=== PATIENT | female | born 1985 | race Caucasian/White ===

== ENCOUNTER 2018-09-19 20:19 | Inpatient (IN) | payer OTHER ==
[~2018-09-19] VITALS: Ht 149.9 cm; Wt 88.1 kg
[~2018-09-19 20:19] MED LIST: PREN1TAB49 PO
[2018-09-19 21:02] VITALS: BP 111/56; PULSE 76; RESP 18
[2018-09-19] MEDS ORDERED: CARBOPROST 250 MCG INJ IM PRN (22:00)
[2018-09-19] MEDS ORDERED: MISOPROSTOL 200 MCG TAB PR PRN (22:00)
[2018-09-19] MEDS ORDERED: OXYTOCIN 30 UNITS/LR 500 ML IV PRN (22:00)
[2018-09-19] MEDS ORDERED: METHYLERGONOVINE 0.2 MG INJ IM PRN (22:00)
[2018-09-19] MEDS ORDERED: OXYTOCIN 30 UNITS/LR 500 ML IV SCH (22:00)
[2018-09-19] MEDS ORDERED: CEFAZOLIN 2 GM/50 ML (PMX) 50 ML IVPB SCH (22:00)
--- NOTE | 2018-09-19 22:01 | TRIAGE ---
OB Triage Datetime Report Generated by CPN: 09/19/2018 22:01 Datetime: 09/19/2018 21:47 Stage of : OB Triage Vaginal Exam Dilatation (cms): 4.0 Effacement (%): 70 Station: -3 Exam By: SANDRA SETH Datetime: 09/19/2018 21:26 Time of Arrival: 09/19/2018 20:10 EGA: 37.0 Arrived By: Wheelchair Arrived From: Home Chief Complaint: hx c/s x1 c/o ucs and DFM today Movement: Decreased Contractions: Regular Time Contractions Began: 09/19/2018 18:00 Contractions: Q15 Rupture of Membranes: Denies Vaginal Bleeding: None Vaginal Discharge: Denies Recent Sexual Intercouse: Denies Abdominal Trauma: Not Applicable Patient Complaints: Contractions Time Provider Notified: 09/19/2018 21:00 Provider Notified: Dr Florez Initial Plan: EFM,UA,SVE,BPP
[2018-09-19] MEDS: LACTATED RINGER'S 1,000 ML IV SCH ×2 (22:58→23:47)
[2018-09-19] MEDS ORDERED: AMPICILLIN 2 GM/NS (PMX) 100 ML IVPB ONE (23:00)
[2018-09-20] MEDS ORDERED: ONDANSETRON 4 MG INJ IV STA (00:18)
[2018-09-20] MEDS ORDERED: morphine SULFATE/PF (10 MG/10 ML) INJ ONE (00:19)
[2018-09-20] MEDS ORDERED: OXYTOCIN 10 UNIT INJ ONE (00:20)
--- NOTE | 2018-09-20 00:24 | PREAC ---
Date/Time of Note Date/Time of Note DATE: 09/20/18 TIME: 00:24 Anesthesia Eval and Record Evaluation Time Pre-Procedure Interview DATE: 09/20/18 TIME: 00:24 Age 32 Sex female NPO: 8 hrs Preoperative diagnosis prev Csection, term labor Planned procedure repeat Csection Past Medical History Past Medical History: None Surgery & Anesthesia Issues No known issue Meds Anticoagulation: No Beta Cecille within 24 hr: No Reason Beta Cecille not given: Pt. not on B-Cecille Reported Medications Vits W-Ca,Fe,Fa(<1MG) () 1 Tab Tablet, 1 TAB PO 11/16/11 Current Medications Lactated Ringer's 1,000 ml @ 125 mls/hr Q8H IV Last administered on 09/19/18at 23:47; Admin Dose 125 MLS/HR; Start 09/19/18 at 21:53 Cefazolin Sodium/ Dextrose 50 ml @ 100 mls/hr ONCE IVPB ; Start 09/19/18 at 22:00 Oxytocin/Lactated Ringer's 500 ml @ 125 mls/hr POST IV ; Start 09/19/18 at 22:00 Oxytocin/Lactated Ringer's 500 ml @ 0 mls/hr ONCE PRN IV VAGINAL BLEEDING; Start 09/19/18 at 22:00 Methylergonovine Maleate (Methergine) 0.2 mg ONCE PRN IM VAGINAL BLEEDING; Start 09/19/18 at 22:00 Carboprost Tromethamine (Hemabate) 250 mcg ONCE PRN IM VAGINAL BLEEDING; Start 09/19/18 at 22:00 Misoprostol (Cytotec) 1,000 mcg ONCE PRN GA VAGINAL BLEEDING; Start 09/19/18 at 22:00 Citric Acid/ Sodium Citrate (Bicitra) 30 ml ONCE ONCE PO ; Start 09/20/18 at 00:30; Stop 09/20/18 at 00:31; Status UNV Famotidine (Pepcid Iv) 20 mg ONCE ONCE IV ; Start 09/20/18 at 00:30; Stop 09/20/18 at 00:31; Status UNV Metoclopramide HCl (Reglan) 10 mg ONCE ONCE IV ; Start 09/20/18 at 00:30; Stop 09/20/18 at 00:31; Status UNV Ondansetron HCl (Zofran Inj) 4 mg ONCE STAT IV ; Start 09/20/18 at 00:18; Stop 09/20/18 at 00:19; Status UNV Meds reviewed: Yes Allergies Coded Allergies: No Known Drug Allergy (Verified Allergy, Unknown, 09/19/18) Allergies Reviewed: Yes Labs/Studies Labs Reviewed: Reviewed by anesthesiologist Result Diagram: 09/19/18 2240 Laboratory Tests 09/19/18 22:40 test: Positive Pre-procedure Exam Last vitals Vital Signs Date Temp Pulse Resp B/P (MAP) Pulse Ox O2 O2 Flow FiO2 Time Delivery Rate 09/19/18 98.5 76 18 111/56 Room Air 21:02 (74) Airway: Adequate mouth opening, Adequate thyromental dist Mallampati: Mallampati III Teeth: Normal Lung: Normal Heart: Normal ASA Physical Status ASA physical status: 2 Emergency: E Planned Anesthetic Neuraxial: Spinal Planned Pain Management Sub-arachniod narcotics, Parenteral pain med, Other neuraxial med Pre-operative Attestations Prior to commencing anesthesia and surgery, the patient was re-evaluated, there was verification of: *The patient's identity *The results of appropriate recent lab work and preoperative vital signs *The above evaluation not changing prior to induction *Anesthetic plan, risk benefits, alternative and complications discussed with patient/family; questions answered; patient/family understands, accepts and wishes to proceed. YONG HERNANDEZ MD Sep 20, 2018 00:24
[2018-09-20] MEDS ORDERED: BUPIVACAINE 0.75%/DEXT (SPINAL) 2 ML INJ ONE (00:26)
[2018-09-20] MEDS ORDERED: EPINEPHrine 1 MG INJ ONE (00:27)
[2018-09-20] MEDS ORDERED: FENTAnyl 50 MCG/ML VIAL IV PRN ×2 (00:30)
[2018-09-20] MEDS ORDERED: DIPHENHYDRAMINE 50 MG INJ IV PRN ×2 (00:30)
[2018-09-20] MEDS ORDERED: NALOXONE (0.4 MG/ML) INJ IV PRN (00:30)
[2018-09-20] MEDS ORDERED: CITRIC ACID/NA CITRATE 30 ML CUP PO ONE (00:30)
[2018-09-20] MEDS ORDERED: HYDROmorphONE 1 MG/5 ML IV SYRINGE IV PRN ×3 (00:30)
[2018-09-20] MEDS ORDERED: HYDROmorphONE 0.5 MG/0.5 ML SYG IV PRN ×2 (00:30)
[2018-09-20] MEDS ORDERED: ONDANSETRON 4 MG INJ IV PRN ×2 (00:30)
[2018-09-20] MEDS ORDERED: ZOLPIDEM 5 MG TAB PO PRN (00:30)
[2018-09-20] MEDS ORDERED: FAMOTIDINE 20 MG INJ IV ONE (00:30)
[2018-09-20] MEDS ORDERED: METOCLOPRAMIDE 10 MG INJ IV ONE (00:30)
[2018-09-20] MEDS ORDERED: KETOROLAC 30 MG INJ IV PRN (00:30)
--- NOTE | 2018-09-20 00:31 | PREOPHP ---
DATE OF ADMISSION: 09/19/2018 HISTORY OF PRESENT ILLNESS: Ms. Sarah Corbin is a 32-year-old 5, para 3, EDC 10/10/2018 intrauterine at 37 weeks gestational age, presented to triage complaining of contractions w ith decreased movement since 6:00 p.m. She was examined to be 4 cm dilated, 70% effaced, -3 st ation. The patient has a significant history of x1 previous section and desires elective re peat delivery with tubal sterilization. Her care took place at [facility]. MEDICAL HISTORY: None. MEDICATIONS: vitamins. PAST SURGICAL HISTORY: x1 . OBSTETRICAL HISTORY: x2 vaginal delivery, x1 . GYNECOLOGIC HISTORY: 11, regular, 3 to 4 days. She denies any sexually transmitted disease. Sexual ly active with 1 partner. SOCIAL HISTORY: Denies any smoking, drugs or alcohol. FAMILY HISTORY: None. REVIEW OF SYSTEMS: All within normal except history of present illness. PHYSICAL EXAMINATION: HEENT: Within normal. LUNGS: CTA bilateral. CARDIOVASCULAR: S1, S2, regular rhythm. ABDOMEN: Gravid, nontender. Negative CVA bilateral. EXTREMITIES: Negative. No calf tenderness. PELVIC: Vaginal exam 4, 70, -3. heart tracing is category 1. ASSESSMENT: Intrauterine at 37 weeks gestational age in labor, previous x1, nidhi res elective repeat delivery with bilateral tubal ligation. PLAN: Consent for repeat with bilateral tubal ligation. Risks, benefits and alternatives were explained. All questions were answered. Dictated By: JANAY BROWN/NAKIA Conf#: [id number] DID#: [id number]
[2018-09-20] MEDS: LACTATED RINGER'S 1,000 ML IV SCH ×2 (00:35→15:51)
--- NOTE | 2018-09-20 01:57 | OPPN ---
Date/Time of Note Date/Time of Note DATE: 09/20/18 TIME: 01:55 Operative Report Planned Procedure Procedure date Sep 20, 2018 Procedure(s) repeat low transverse CD with bilateral tubal ligation rios method Performed by see signature line Lobbyist: CARLOTA PICHARDO MD 2nd Lobbyist none Anesthesiologist: YONG HERNANDEZ MD Pre-procedure diagnosis intrauterine at 37 weeks gestational age in labor, previous x1, desires elective repeat delivery with bilateral tubal ligation. [id number] Anesthesia Type: [id number] spinal Post-Procedure Post-procedure diagnosis intrauterine at 37 weeks gestational age in labor, previous x1, desires elective repeat delivery with bilateral tubal ligation. Findings a viable male 8/9 weight 3,195 grams, normal uteus tubes and ovaries. Estimated Blood Loss: 500 - 600 mls Specimen(s) portion of right and left fallopian tube Grafts/Implant(s) none Complication(s) none JANAY ALLEN MD Sep 20, 2018 01:57
[2018-09-20] MEDS ORDERED: OXYTOCIN 30 UNITS/LR 500 ML IV SCH (01:58)
[2018-09-20] MEDS ORDERED: MISOPROSTOL 200 MCG TAB PR PRN (02:00)
[2018-09-20] MEDS ORDERED: LANOLIN HPA 1 PKT TOP PRN (02:00)
[2018-09-20] MEDS ORDERED: NACL 0.9% 3 ML SYG IV SCH (02:00)
[2018-09-20] MEDS ORDERED: METHYLERGONOVINE 0.2 MG INJ IM PRN (02:00)
[2018-09-20] MEDS ORDERED: OXYTOCIN 30 UNITS/LR 500 ML IV PRN (02:00)
[2018-09-20] MEDS ORDERED: CEFAZOLIN 2 GM/50 ML (PMX) 50 ML IVPB SCH (02:00)
[2018-09-20] MEDS ORDERED: CARBOPROST 250 MCG INJ IM PRN (02:00)
[2018-09-20 04:40] VITALS: BP 99/58; PULSE 92; RESP 18
[2018-09-20] MEDS ORDERED: PROPOFOL 200 MG INJ ONE (07:00)
[2018-09-20 08:00] VITALS: BP 113/57; PULSE 90; RESP 20
[2018-09-20] MEDS: CEFAZOLIN 2 GM/50 ML (PMX) 50 ML IVPB SCH ×2 (08:59→16:39)
[2018-09-20] MEDS: KETOROLAC 30 MG INJ IV PRN ×2 (10:14→15:52)
--- NOTE | 2018-09-20 11:24 | OPR ---
DATE OF OPERATION: 09/20/2018 PREOPERATIVE DIAGNOSIS: Intrauterine at 37 weeks gestational age, in labor, previous C-sec tion x1, desires elective repeat delivery with bilateral tubal sterilization. Declined vagi nal after . POSTOPERATIVE DIAGNOSIS: Intrauterine at 37 weeks gestational age, in labor, previous C-sec tion x1, desires elective repeat delivery with bilateral tubal sterilization. Declined vagi nal after . OPERATION PERFORMED: Repeat low transverse delivery with bilateral tubal ligation, [place] method. SURGEON: Ricci Florez MD. COOKER SULFITE: Alvino York MD. ANESTHESIOLOGIST: Dr. Ilia Cole. ANESTHESIA: Spinal. COMPLICATIONS: None. ESTIMATED BLOOD LOSS: 500 mL. FINDINGS: A viable male, 8 and 9 respectively at 1 and 5 minutes, weight 3195 grams. Normal u terus, tubes and ovaries. DESCRIPTION OF PROCEDURE: After explaining the risks, benefits and alternatives to the patient and c onsent signed in chart, the patient was taken to the operating room where spinal anesthesia was found to be adequate. She was then prepared and draped in normal sterile fashion in dorsal supine positio n with a leftward tilt. A Pfannenstiel skin incision was then made with a scalpel and carried to the underlying of the fascia. The fascia was incised in midline and incision was extended laterally wit h Escobar scissors. The superior aspect of the fascial incision was grasped with curved clamps, elevate d and the underlying rectus muscles dissected off bluntly. Attention was then turned to the inferior aspect of the incision which in similar fashion was grasped with curved clamps, elevated and the rec tus muscles was dissected off bluntly. The rectus muscle was in midline, peritoneum identi fied, tented up and entered sharply with Metzenbaum scissors. The peritoneal incision was extended s uperiorly, inferiorly with good visualization of the bladder. The bladder blade was then inserted an d the vesicouterine peritoneum identified, grasped with pickups and sharply with Metzenbaum scissors. This incision was extended laterally and the bladder flap created digitally. The bladder blade was then reinserted and lower segment incised in transverse fashion with a scalpel. The uterine incisio n was extended laterally. The bladder blade was removed and the infant's head delivered atraumatical ly. The nose and mouth were suctioned and cord clamped and cut. The was handed off to kira guzmán hygiene assistant. The placenta was then removed. The uterus exteriorized and cleared of all clots and debris. The uterine incision was repaired with 1-0 chromic in a running locked fashion. A second l doug of same suture was used for imbrication obtaining excellent hemostasis. At this point, using a [place] clamp was used to grasp the left fallopian tube 4 cm from the cornual region. A 3 cm segment of tube was ligated with a free tie of plain gut and excised. Good hemostasi s was noted. Similarly, the other fallopian tube was ligated and excised in similar fashion and sent to pathology. Excellent hemostasis was noted. The uterus was returned to the abdomen. The gutters were cleared of all clots. The peritoneum and rectus abdominis muscles reapproximated with 3-0 Vicr yl in interrupted fashion. The fascia was reapproximated with 0 Vicryl in a running fashion. The smith bcutaneous tissue was reapproximated with 2-0 plain gut in a running fashion. The skin was closed wi th absorbable basilia. The patient tolerated procedure well. Sponge, lap and needle counts were cor rect. The patient was taken to recovery room in stable condition. Dictated By: RICCI BROWN/NAKIA Conf#: [id number] DID#: [id number]
[2018-09-20 12:05] VITALS: BP 108/56; PULSE 99; RESP 20
[2018-09-20 15:43] VITALS: BP 107/56; PULSE 99; RESP 20
[2018-09-20 19:45] VITALS: BP 96/66; PULSE 112; RESP 18
[2018-09-21] MEDS: KETOROLAC 30 MG INJ IV PRN (00:39)
[2018-09-21] MEDS: CEFAZOLIN 2 GM/50 ML (PMX) 50 ML IVPB SCH (00:40)
[2018-09-21 04:07] VITALS: BP 95/70; PULSE 95; RESP 18
[2018-09-21] MEDS: IBUPROFEN 600 MG TAB PO SCH ×4 (05:58→23:34)
[2018-09-21] MEDS: OXYCODONE/ACETAMINOPHEN (5/325) TAB PO PRN ×3 (06:13→20:38)
[2018-09-21 08:00] VITALS: BP 108/80; PULSE 95; RESP 19
[2018-09-21 16:00] VITALS: BP 101/70; PULSE 95; RESP 19
--- NOTE | 2018-09-21 17:19 | QN ---
Documentation Comment progress note pod 1 patient seen and evaluated no complaints vs stable afebrile ab c/d/i no distention extremity no edema no calf tenderness a sp cd pod 1 stable afebrile p.iron supplement encourage ambulation JANAY ALLEN MD Sep 21, 2018 17:19
[2018-09-21 20:15] VITALS: BP 124/69; PULSE 78; RESP 18
[2018-09-21] MEDS: FERROUS SULFATE (EC) 325 MG TAB PO SCH (20:38)
[2018-09-22] MEDS: OXYCODONE/ACETAMINOPHEN (5/325) TAB PO PRN ×5 (00:32→22:00)
[2018-09-22 04:42] VITALS: BP 126/57; PULSE 85; RESP 18
[2018-09-22] MEDS: IBUPROFEN 600 MG TAB PO SCH ×4 (06:01→23:41)
[2018-09-22 07:30] VITALS: BP 92/57; PULSE 80; RESP 18
[2018-09-22] MEDS: FERROUS SULFATE (EC) 325 MG TAB PO SCH ×2 (08:34→21:59)
--- NOTE | 2018-09-22 10:46 | QN ---
Documentation Comment progress note pod 2 patient seen and evaluated no complaints vs stable afebrile ab c/d/i no distention extremity no edema no calf tenderness a sp cd pod 2 stable afebrile p.discharge home tomorrow JANAY ALLEN MD Sep 22, 2018 10:46
--- NOTE | 2018-09-22 10:46 | PD.PPDC ---
SAFETY INVESTIGATOR/CAUSE ANALYST Discharge Instruction Condition [id number] Patient Condition: Zbrcr3b Good Diet Zriwk5Ib Diet: Dmnqh2z Resume Regular Diet Activity/Restrictions Pvoyo4Wp Activity: Yvrrz4p Normal Activity May Shower Muoqt7Cf Restrictions: Pqdre9i No Exercising No Lifting No Driving No Sexual Activity Nothing in the Vagina No [place] No Tampons, douche Wound/Drain Care Instructions [id number] Wound/Drain Care Instructions: Tqwqy1t Wash with soap and water Keep clean and dry Follow-up Follow-up with Physician: 2 Return to clinic for [id number] INFO PRINT PRESS OPERATOR Instructions: Dftaq3w Fever greater than 101 Chills Worsening abdominal pain Excessive Vaginal Bleeding More than 2 pads per hour Unable to tolerate diet [id number] OB Instructions: Tabsz0s Breast Tenderness Depression Blurried Vision Headache [id number] Surgical Instructions: Eoznh5b Incisional Drainage Incisional Redness JANAY ALLEN MD Sep 22, 2018 10:46
--- NOTE | 2018-09-22 11:02 | DS ---
DATE OF ADMISSION: 09/19/2018 DATE OF DISCHARGE: 09/23/2018 PRIMARY DIAGNOSIS: Intrauterine at 37 weeks gestational age in labor, previous x 1, desires elective repeat delivery with bilateral tubal sterilization. PROCEDURE: Repeat low transverse delivery with bilateral tubal ligation. CONDITION ON DISCHARGE: Stable. ACTIVITY: None per vagina, no heavy lifting x6 weeks. DIET: Regular. MEDICATIONS ON DISCHARGE: 1. Motrin. 2. Iron. 3. Colace. DISCHARGE SUMMARY: Ms. Sarah Corbin underwent a repeat delivery with bilateral tubal li gation on 09/20/2018. She had a viable male, 8 and 9 respectively at 1 and 5 minutes, weight 3 195 grams. She had an uneventful postop day 1, 2. She will be discharged on postop day 3. Her inci nasim is clean, dry, intact. She is ambulating, tolerating diet, positive. She will follow up in the clinic in 2 weeks for /postop care. Dictated By: JANAY BROWN/NAKIA Conf#: [id number] DID#: [id number]
[2018-09-22 16:17] VITALS: BP 130/85; PULSE 84; RESP 18
[2018-09-22 19:45] VITALS: BP 110/70; PULSE 85; RESP 18
[2018-09-22] MEDS ORDERED: BISACODYL (EC) 5 MG TAB PO ONE (22:00)
[2018-09-23] MEDS: OXYCODONE/ACETAMINOPHEN (5/325) TAB PO PRN (03:03)
[2018-09-23 03:11] VITALS: BP 118/72; PULSE 73; RESP 18
[2018-09-23] MEDS: IBUPROFEN 600 MG TAB PO SCH ×2 (05:38→11:41)
[2018-09-23 07:40] VITALS: BP 103/65; PULSE 72; RESP 20
[2018-09-23] MEDS: FERROUS SULFATE (EC) 325 MG TAB PO SCH (09:35)
== END 2018-09-23 14:30 | disposition home or self-care (01) | DRG 785 ==
LOC: OBT 20:19 → L-D 20:20 → OBT 21:50 → L-D 21:50 → PP1 09-20 04:41
PROVIDERS: ADMIT Obstetrics & Gynecology; ATTEND Obstetrics & Gynecology
PROC: 0UB70ZZ Excision of Bilateral Fallopian Tubes, Open Approach (ICD-10-PCS; 2018-09-20)
PROC: 10D00Z1 Extraction of Products of Conception, Low, Open Approach (ICD-10-PCS; principal; 2018-09-20 00:15)
DX: O34.211 Maternal care for low transverse scar from previous cesarean delivery (principal); Z3A.37 37 weeks gestation of pregnancy; Z37.0 Single live birth; Z30.2 Encounter for sterilization
CPT/HCPCS: 76818; 81001; 85025; 85610; 85730; 86592; 86850; 86900; 86901; 87086; 88302; 88307; 99464; G0463; J0171; J0290; J0690; J1885; J2274; J2405; J2590; J2765; J7120